=== PATIENT | male | born 1990 ===

== ENCOUNTER 2021-10-16 16:06 | Emergency (ER) | payer OTHER ==
[2021-10-16 16:43] LABS: ANION GAP 18.4 mEq/L (7-13); CHLORIDE,CL 106 mmol/L (98-107); SODIUM,NA 144 mmol/L (136-145)
[2021-10-16 17:16] LABS: METHAMPHETAMINES,URINE NEGATIVE (NEGATIVE)
[2021-10-16 17:17] LABS: AMPHETAMINES,URINE NEGATIVE (NEGATIVE); BARBITURATES,URINE NEGATIVE (NEGATIVE); BENZODIAZEPINE,URINE NEGATIVE (NEGATIVE); MDMA (ECSTASY), URINE NEGATIVE (NEGATIVE); METHADONE,URINE NEGATIVE (NEGATIVE); OPIATES,URINE NEGATIVE (NEGATIVE); OXYCODONE,URINE NEGATIVE (NEGATIVE); PHENCYCLIDINE,URINE NEGATIVE (NEGATIVE); TCA,URINE NEGATIVE (NEGATIVE)
== END 2021-10-16 17:32 ==
LOC: DL.ED 16:06
DX: S00.81XA Abrasion of other part of head, initial encounter (principal); S30.811A Abrasion of abdominal wall, initial encounter; S69.91XA Unspecified injury of right wrist, hand and finger(s), initial encounter; V28.0XXA Motorcycle driver injured in noncollision transport accident in nontraffic accident, initial encounter
CPT/HCPCS: 36415; 70450; 70486; 72125; 80053; 80305-QW; 80307; 81001; 85025; 99282; 99284-25

== ENCOUNTER 2022-06-29 12:41 | Emergency (ER) | payer SELFPAY ==
[2022-06-29 13:33] LABS: CORONAVIRUS COVID-19 NAA NEGATIVE (NEGATIVE)
== END 2022-06-29 14:14 | disposition home or self-care (01) ==
LOC: DL.ED 12:41
DX: J10.1 Influenza due to other identified influenza virus with other respiratory manifestations (principal); Z72.0 Tobacco use; Z20.822 Contact with and (suspected) exposure to COVID-19
CPT/HCPCS: 0240U; 99283

== ENCOUNTER 2024-07-17 09:13 | Inpatient (IN) | payer MEDICAID ==
[2024-07-17 10:22] LABS: BASOPHILS PERCENT AUTO 0.2 % (0.0-1.0); HEMATOCRIT 45.4 % (40.0-54.0); HEMOGLOBIN 15.8 g/dL (14.0-18.0); LYMPHOCYTES PERCENT AUTO 2.8 % (20.5-50.1); MEAN CORPUSCULAR HEMOGLOBIN 34.4 pg (27.0-34.0); MEAN CORPUSCULAR HGB CONC 34.8 g/dL (33.0-35.0); MEAN CORPUSCULAR VOLUME 98.9 fL (80-100); MONOCYTES PERCENT AUTO 6.2 % (2-8); NEUTROPHILS PERCENT AUTO 90.8 % (42.2-75.2); PLATELET COUNT,PLT 235 10^3/uL (150-450); RED BLOOD CELL COUNT 4.59 10^6/uL (4.6-6.2); WHITE BLOOD CELL COUNT,WBC 25.6 10^3/uL (5.0-10.0)
[2024-07-17 10:41] LABS: ALANINE AMINOTRANSFERASE,ALT 38 U/L (16-63); ALBUMIN 3.1 g/dL (3.4-5.0); ALKALINE PHOSPHATASE 96 U/L (46-116); ANION GAP 17.4 mEq/L (7-13); ASPARTATE AMNIOTRANSFERASE,AST 18 U/L (15-37); BILIRUBIN TOTAL 1.9 mg/dL (0.2-1.0); BLOOD UREA NITROGEN,BUN 9 mg/dL (7-18); BUN/CREATININE RATIO 7.7 (No establ ref range); CALCIUM 9.1 mg/dL (8.5-10.1); CARBON DIOXIDE,CO2 25 mmol/L (21-32); CHLORIDE,CL 93 mmol/L (98-107); CREATININE 1.17 mg/dL (0.70-1.30); GLUCOSE RANDOM 135 mg/dL (70-99); POTASSIUM,K 3.4 mmol/L (3.5-5.1); PROTEIN TOTAL,TP 8.1 g/dL (6.4-8.2); SODIUM,NA 132 mmol/L (136-145)
[2024-07-17 10:42] LABS: A/G RATIO 0.62; ESTIMATED GFR 83 mL/min (>=60)
[2024-07-17 10:44] LABS: LACTIC ACID 1.4 mmol/L (0.4-2.0)
[2024-07-17] MEDS: Sodium Chloride 0.9% 1,000 ML IV ONE ×2 (10:47→10:48)
[2024-07-17] MEDS: Piperacillin/Tazobactam 4.5 GM in Sodium Chloride 0.9% 100 ML IV ONE (10:59)
[2024-07-17] MEDS: VANCOmycin 1.75 GM in Sodium Chloride 0.9% 500 ML IV ONE (11:14)
[2024-07-17] MEDS: VANCOmycin 750 MG SDV ONE (12:17)
[2024-07-17] MEDS ORDERED: Docusate Sodium 100 MG Cap PO PRN (13:47)
[2024-07-17] MEDS: Enoxaparin 40 MG/0.4 ML Syringe SUBCUT SCH (14:21)
[2024-07-17] MEDS: Sodium Chloride 0.9% 1,000 ML IV SCH (14:21)
[2024-07-17] MEDS: Piperacillin/Tazobactam 4.5 GM in Sodium Chloride 0.9% 100 ML IV SCH (14:23)
[2024-07-17] MEDS: oxyCODONE 5 MG Tab PO PRN (14:29)
[2024-07-17] MEDS ORDERED: Piperacillin/Tazobactam 3.375 GM in Sodium Chloride 0.9% 100 ML IV SCH (18:00)
[2024-07-17] MEDS: Metoprolol Tartrate 5 MG/5 ML SDV IVPUSH PRN (21:23)
[2024-07-17] MEDS: VANCOmycin 1.25 GM in Sodium Chloride 0.9% 250 ML IV SCH (21:23)
[2024-07-18] MEDS: Hydrochlorothiazide 25 MG Tab PO SCH (02:37)
[2024-07-18 06:15] LABS: BASOPHILS PERCENT AUTO 0.1 % (0.0-1.0); HEMATOCRIT 39.6 % (40.0-54.0); HEMOGLOBIN 13.5 g/dL (14.0-18.0); LYMPHOCYTES PERCENT AUTO 4.8 % (20.5-50.1); MEAN CORPUSCULAR HEMOGLOBIN 34.4 pg (27.0-34.0); MEAN CORPUSCULAR HGB CONC 34.1 g/dL (33.0-35.0); MEAN CORPUSCULAR VOLUME 100.8 fL (80-100); MONOCYTES PERCENT AUTO 9.2 % (2-8); NEUTROPHILS PERCENT AUTO 85.9 % (42.2-75.2); PLATELET COUNT,PLT 230 10^3/uL (150-450); RED BLOOD CELL COUNT 3.93 10^6/uL (4.6-6.2)
[2024-07-18 06:31] LABS: ANION GAP 11.5 mEq/L (7-13); CALCIUM 8.4 mg/dL (8.5-10.1); CREATININE 1.23 mg/dL (0.70-1.30); EST CRCL DRUG DOSING (CG) 86.55 mL/min; POTASSIUM,K 3.5 mmol/L (3.5-5.1)
[2024-07-18] MEDS: Ketorolac 30 MG/ML SDV IVPUSH PRN (09:04)
[2024-07-18] MEDS: hydrALAZINE 20 MG/ML SDV IVPUSH PRN (09:12)
[2024-07-18] MEDS: Acetaminophen 325 MG Tab PO PRN (16:40)
[2024-07-18] MEDS: Nicotine 14 MG/24 Hr Patch TRDERM SCH (18:57)
[2024-07-18] MEDS: Melatonin 3 MG Tab PO PRN (21:13)
[2024-07-18] MEDS: hydrALAZINE 25 MG Tab PO SCH (21:13)
[2024-07-19] MEDS: Ondansetron 4 MG Tab.DIS PO PRN (06:06)
[2024-07-19 09:35] LABS: HEMATOCRIT 39.5 % (40.0-54.0); HEMOGLOBIN 13.6 g/dL (14.0-18.0); MEAN CORPUSCULAR HEMOGLOBIN 34.2 pg (27.0-34.0); MEAN CORPUSCULAR HGB CONC 34.4 g/dL (33.0-35.0); MEAN CORPUSCULAR VOLUME 99.2 fL (80-100); RED BLOOD CELL COUNT 3.98 10^6/uL (4.6-6.2)
[2024-07-20 06:37] LABS: HEMATOCRIT 37.8 % (40.0-54.0); HEMOGLOBIN 12.8 g/dL (14.0-18.0); MEAN CORPUSCULAR HEMOGLOBIN 33.9 pg (27.0-34.0); MEAN CORPUSCULAR HGB CONC 33.9 g/dL (33.0-35.0); RED BLOOD CELL COUNT 3.78 10^6/uL (4.6-6.2); WHITE BLOOD CELL COUNT,WBC 15.3 10^3/uL (5.0-10.0)
[2024-07-20] MEDS: Sodium Chloride 0.9% 100 ML ONE (08:53)
[2024-07-20] MEDS: Sodium Chloride 0.9% 10 ML Syringe FLUSH PRN (23:17)
[2024-07-21 06:46] LABS: HEMOGLOBIN 12.9 g/dL (14.0-18.0); MEAN CORPUSCULAR HEMOGLOBIN 33.8 pg (27.0-34.0); MEAN CORPUSCULAR HGB CONC 33.9 g/dL (33.0-35.0); MEAN CORPUSCULAR VOLUME 99.5 fL (80-100); RED BLOOD CELL COUNT 3.82 10^6/uL (4.6-6.2); WHITE BLOOD CELL COUNT,WBC 12.8 10^3/uL (5.0-10.0)
[2024-07-21] MEDS: Iopamidol 612 MG/ML 100 ML Bottle IVPUSH ONE (11:45)
[2024-07-21] MEDS: Lidocaine 1% 5 ML VIAL ONE (17:10)
[2024-07-21] MEDS: Lidocaine 1% 5 ML VIAL INJECT ONE ×2 (17:11)
[2024-07-23 08:34] LABS: MEAN CORPUSCULAR HGB CONC 34.3 g/dL (33.0-35.0); MEAN CORPUSCULAR VOLUME 99.2 fL (80-100); RED BLOOD CELL COUNT 3.53 10^6/uL (4.6-6.2); WHITE BLOOD CELL COUNT,WBC 16.1 10^3/uL (5.0-10.0)
[2024-07-23 08:54] LABS: ANION GAP 19.7 mEq/L (7-13); CALCIUM 8.8 mg/dL (8.5-10.1); EST CRCL DRUG DOSING (CG) 10.66 mL/min; POTASSIUM,K 3.7 mmol/L (3.5-5.1)
[2024-07-23 09:11] LABS: CREATININE 9.99 mg/dL (0.70-1.30)
[2024-07-23 10:12] LABS: ANION GAP 18.8 mEq/L (7-13); CALCIUM 8.8 mg/dL (8.5-10.1); EST CRCL DRUG DOSING (CG) 10.57 mL/min; POTASSIUM,K 3.8 mmol/L (3.5-5.1)
[2024-07-23 10:14] LABS: CREATININE 10.07 mg/dL (0.70-1.30)
[2024-07-23] MEDS: Sodium Chloride 0.9% 1,000 ML IV SCH ×2 (11:48→12:11)
[2024-07-23] MEDS ORDERED: LORazepam 2 MG/ML SDV IVPUSH PRN (14:51)
[2024-07-23] MEDS: LORazepam 2 MG/ML SDV ONE (14:55)
[2024-07-23] MEDS: Enoxaparin 30 MG/0.3 ML Syringe SUBCUT SCH (15:23)
[2024-07-23] MEDS ORDERED: Piperacillin/Tazobactam 4.5 GM in Sodium Chloride 0.9% 100 ML IV SCH (22:00)
== END 2024-07-23 17:15 | DRG 871 ==
LOC: DL.ED 09:13 → DL.MS 11:00
PROVIDERS: ADMIT Internal Medicine; ATTEND Internal Medicine
DX: A41.9 Sepsis, unspecified organism (principal); N00.9 Acute nephritic syndrome with unspecified morphologic changes; N17.0 Acute kidney failure with tubular necrosis; L03.116 Cellulitis of left lower limb; L02.416 Cutaneous abscess of left lower limb; F17.210 Nicotine dependence, cigarettes, uncomplicated; F12.90 Cannabis use, unspecified, uncomplicated; F10.90 Alcohol use, unspecified, uncomplicated; Z87.81 Personal history of (healed) traumatic fracture; Z98.890 Other specified postprocedural states
CPT/HCPCS: 36415; 73702; 80048; 80053; 80202; 83605; 85025; 85027; 86140; 87040; 87070; 87077; 93005; 99223; 99233; 99239; 99284; A9270-GY; J0360; J1650; J1885; J2060; J2543; J3371; J3490; J7030; J7040; J7050; Q9967

== ENCOUNTER 2024-09-10 13:10 | Emergency (ER) | payer OTHER ==
[2024-09-10 14:15] LABS: BASOPHILS PERCENT AUTO 0.4 % (0.0-1.0); EOSINOPHILS PERCENT AUTO 1.5 % (1.0-3.0); HEMATOCRIT 37.2 % (40.0-54.0); HEMOGLOBIN 12.3 g/dL (14.0-18.0); LYMPHOCYTES PERCENT AUTO 21.2 % (20.5-50.1); MEAN CORPUSCULAR HEMOGLOBIN 32.6 pg (27.0-34.0); MEAN CORPUSCULAR HGB CONC 33.1 g/dL (33.0-35.0); MEAN CORPUSCULAR VOLUME 98.7 fL (80-100); NEUTROPHILS PERCENT AUTO 64.9 % (42.2-75.2); PLATELET COUNT,PLT 383 10^3/uL (150-450); RED BLOOD CELL COUNT 3.77 10^6/uL (4.6-6.2); WHITE BLOOD CELL COUNT,WBC 7.5 10^3/uL (5.0-10.0)
[2024-09-10 14:29] LABS: INR 0.9 (0.9-1.2); PROTHROMBIN TIME 9.4 SEC (9.0-12.0); PTT,PARTIAL THROMBOPLSTIN TIME 28.4 SEC (22.0-34.0)
[2024-09-10 14:33] LABS: A/G RATIO 0.9; ALANINE AMINOTRANSFERASE,ALT 27 U/L (16-63); ALBUMIN 3.9 g/dL (3.4-5.0); ALKALINE PHOSPHATASE 85 U/L (46-116); ANION GAP 13.9 mEq/L (7-13); ASPARTATE AMNIOTRANSFERASE,AST 15 U/L (15-37); BILIRUBIN TOTAL 0.5 mg/dL (0.2-1.0); BLOOD UREA NITROGEN,BUN 17 mg/dL (7-18); BUN/CREATININE RATIO 13.6 (No establ ref range); CALCIUM 9.4 mg/dL (8.5-10.1); CARBON DIOXIDE,CO2 30 mmol/L (21-32); CHLORIDE,CL 100 mmol/L (98-107); CREATININE 1.25 mg/dL (0.70-1.30); EST CRCL DRUG DOSING (CG) 85.17 mL/min; GLUCOSE RANDOM 98 mg/dL (70-99); POTASSIUM,K 3.9 mmol/L (3.5-5.1); PROTEIN TOTAL,TP 8.1 g/dL (6.4-8.2); SODIUM,NA 140 mmol/L (136-145)
[2024-09-10 14:34] LABS: ESTIMATED GFR 77 mL/min (>=60)
[2024-09-10 15:00] LABS: LACTIC ACID 1.1 mmol/L (0.4-2.0)
[2024-09-10] MEDS: Take Home: Sulfamethoxazole/Trimethoprim 800-160 MG Tab, 6 Tab Pack PO ONE (15:15)
== END 2024-09-10 15:17 | disposition home or self-care (01) ==
LOC: DL.ED 13:10
DX: L03.116 Cellulitis of left lower limb (principal); F17.210 Nicotine dependence, cigarettes, uncomplicated
CPT/HCPCS: 36415; 80053; 83605; 84145; 85025; 85610; 85730; 86140; 87040; 87070; 99284; A9270-GY

== ENCOUNTER 2024-11-28 12:00 | Emergency (ER) | payer SELFPAY ==
[2024-11-28] MEDS: Tranexamic Acid 1,000 MG/10 ML Vial TOP ONE ×3 (12:33→14:31)
[2024-11-28] MEDS ORDERED: EPINEPHrine Nasal Soln 30 MG/30 ML Bottle NAS ONE (13:19)
[2024-11-28] MEDS: Oxymetazoline 0.05% Nasal Spray 30 ML Bottle NAS ONE (13:24)
[2024-11-28 14:10] LABS: BASOPHILS PERCENT AUTO 0.4 % (0.0-1.0); EOSINOPHILS PERCENT AUTO 0.5 % (1.0-3.0); HEMATOCRIT 42.9 % (40.0-54.0); HEMOGLOBIN 14.3 g/dL (14.0-18.0); LYMPHOCYTES PERCENT AUTO 12.4 % (20.5-50.1); MEAN CORPUSCULAR HEMOGLOBIN 32.5 pg (27.0-34.0); MEAN CORPUSCULAR HGB CONC 33.3 g/dL (33.0-35.0); MEAN CORPUSCULAR VOLUME 97.5 fL (80-100); MONOCYTES PERCENT AUTO 8.6 % (2-8); NEUTROPHILS PERCENT AUTO 78.1 % (42.2-75.2); PLATELET COUNT,PLT 248 10^3/uL (150-450)
[2024-11-28] MEDS: fentaNYL 100 MCG/2 ML SDV IM ONE (14:20)
[2024-11-28] MEDS: hydrALAZINE 20 MG/ML SDV IVPUSH ONE (14:22)
[2024-11-28] MEDS: LORazepam 2 MG/ML SDV IVPUSH ONE (14:23)
[2024-11-28] MEDS: Lidocaine 1% with EPINEPHrine 1:100,000 20 ML MDV INJECT ONE (14:31)
[2024-11-28 14:38] LABS: INR 0.9 (0.9-1.2); PROTHROMBIN TIME 9.1 SEC (9.0-12.0); PTT,PARTIAL THROMBOPLSTIN TIME 24.7 SEC (22.0-34.0)
[2024-11-28] MEDS: Labetalol 20 MG/4 ML Syringe IVPUSH ONE (14:50)
== END 2024-11-28 15:35 ==
LOC: DL.ED 12:00
DX: R04.0 Epistaxis (principal); F17.210 Nicotine dependence, cigarettes, uncomplicated
CPT/HCPCS: 30903; 30905; 36415; 70450; 70486; 85025; 85610; 85730; 86850; 86900; 86901; 96372; 96374; 96375; 99284; A9270; J0360; J1920; J2004; J2060